=== PATIENT | female | born 1990 | race Caucasian/White ===

== ENCOUNTER 2017-02-07 13:04 | Outpatient (RCR) | payer OTHER ==
[~2017-02-07 13:04] MED LIST: LEVOXYL0.1 MG PO; PERCOCET 325 MG1 TA2 PO; ZOFRAN 4MG T4 MG/TAB PO
== END 2017-03-31 14:24 | disposition still patient (30) ==
LOC: WSOH 13:04
DX: M79.661 Pain in right lower leg (principal)

== ENCOUNTER 2018-04-13 16:22 | Inpatient (IN) | payer OTHER ==
[~2018-04-13] VITALS: Ht 157.5 cm; Wt 96.8 kg
[2018-04-18] VITALS (48 sets, daily range): BP systolic 91–131; BP diastolic 41–87; PULSE 75–118; TEMP 97.4–98.1
[2018-04-18] MEDS ORDERED: ZANTAC 150MG T150 MG PO (12:15)
[2018-04-18] MEDS ORDERED: PRENATAL MVI (12:15)
[2018-04-18 12:49] LABS: BASO % 0.3 % (0.0-2.0); EOS # 0.1 (0.0-0.7); EOS % 0.8 % (0-4.0); GRAN # 5.7 (1.4-6.5); GRAN % 72.4 % (42.2-75.2); HEMATOCRIT 40.7 % (37.0-47.0); HEMOGLOBIN 13.8 g/dl (12.5-16.0); LYMPH # 1.3 (1.2-3.4); MEAN CELL VOLUME 92 fl (80.0-100.0); MEAN CORPUSCULAR HEMOGLOBIN 31 pg (27.0-31.0); MEAN CORPUSCULAR HGB CONC 34 g/dl (33.0-37.0); MEAN PLATELET VOLUME 10.3 fl (7.4-10.4); MONO # 0.7 (0.1-0.6); PLATELET COUNT 219 K/mm3 (130-400); RED BLOOD COUNT 4.43 M/mm3 (4.10-5.30); REDCELL DISTRIBUTION WIDTH-CV 14.1 % (11.5-14.5)
[2018-04-19] VITALS (14 sets, daily range): BP systolic 99–130; BP diastolic 55–99; PULSE 91–127; TEMP 97.8–98.8
[2018-04-19] MEDS ORDERED: IBU600 MG PO (08:59)
[2018-04-20 08:00] VITALS: BP 117/78; PULSE 83; TEMP 98.5
== END 2018-04-20 14:10 | disposition home or self-care (01) | DRG 807 ==
LOC: LDR 04-18 11:49 → OB 04-18 11:49 → LDR 04-18 14:08 → OB 04-19 01:00
PROVIDERS: Obstetrics & Gynecology
PROC: 3E033VJ Introduction of Other Hormone into Peripheral Vein, Percutaneous Approach (ICD-10-PCS; 2018-04-18)
PROC: 10907ZC Drainage of Amniotic Fluid, Therapeutic from Products of Conception, Via Natural or Artificial Opening (ICD-10-PCS; 2018-04-18)
PROC: 0UQMXZZ Repair Vulva, External Approach (ICD-10-PCS; 2018-04-18)
PROC: 10E0XZZ Delivery of Products of Conception, External Approach (ICD-10-PCS; principal; 2018-04-19)
PROC: 0KQM0ZZ Repair Perineum Muscle, Open Approach (ICD-10-PCS; 2018-04-19)
DX: O48.0 Post-term pregnancy (principal); Z37.0 Single live birth; Z3A.40 40 weeks gestation of pregnancy; O77.0 Labor and delivery complicated by meconium in amniotic fluid; O99.284 Endocrine, nutritional and metabolic diseases complicating childbirth; E03.9 Hypothyroidism, unspecified; O70.1 Second degree perineal laceration during delivery
CPT/HCPCS: J1200; J2590; J7120

== ENCOUNTER 2021-08-17 19:01 | Outpatient (CLI) | payer OTHER ==
[~2021-08-17] VITALS: Ht 160 cm; Wt 93.6 kg
[~2021-08-17 19:01] MED LIST changes: +IBU600 MG PO; +PRENATAL MVI; +ZANTAC 150MG T150 MG PO
--- NOTE | 2021-08-17 19:20 | NUR ---
G2L1. 29-0. Pt to LDR 5 with spouse. Pt states she lost her peripheral vision for 30 mins but states it is back at this time. Pt also reports headache to her right side of head, has not taken medication for this yet. Pt reports having lor hdz for the last couple weeks irregular. Pt also reports numbness to her left hand when she got to the ER. Pt denies drinking enough fluids today and reports being on her feet majority of the day. Plan of care explained. at nurses station prior to pt on floor and orders received. 2000: called and updated on pt. Orders for tylenol received. 2009: 1 GM tylenol given at this time. Lights off and pt instructed to attempt to rest. Ice water given to pt.
[2021-08-17] MEDS ORDERED: SYNTHROID0.112 MG/T PO (19:53)
[2021-08-17] MEDS ORDERED: PROZAC40 MG PO (19:54)
[2021-08-17 20:00] VITALS: BP 119/80; PULSE 109; TEMP 98.2
[2021-08-17 20:13] LABS: COLLECTION METHOD CLEAN CATCH
[2021-08-17 20:17] LABS: BASO % 0.4 % (0.0-2.0); EOS # 0.1 K/mm3 (0.0-0.7); EOS % 1.3 % (0.0-4.0); GRAN # 6.8 K/mm3 (1.4-6.5); GRAN % 69.9 % (42.2-75.2); HEMATOCRIT 37.1 % (37.0-47.0); HEMOGLOBIN 12.6 g/dl (12.5-16.0); MEAN CELL VOLUME 94 fl (80.0-100.0); MEAN CORPUSCULAR HEMOGLOBIN 32 pg (27-31); MEAN CORPUSCULAR HGB CONC 34 g/dl (33.0-37.0); MEAN PLATELET VOLUME 9.9 fl (7.4-10.4); MONO # 0.8 K/mm3 (0.1-0.6); MONO % 7.7 % (1.7-9.3); PLATELET COUNT 232 K/mm3 (130-400); RED BLOOD COUNT 3.96 M/mm3 (4.10-5.30); REDCELL DISTRIBUTION WIDTH-CV 13.5 % (11.5-14.5)
[2021-08-17 20:27] LABS: MUCOUS Present (NOT PRESENT); SQUAMOUS EPITHELIAL 0-2 /hpf (0-10); URINE BACTERIA None Seen /hpf (NONE SEEN)
[2021-08-17 20:30] VITALS: BP 121/77; PULSE 88
[2021-08-17 20:34] LABS: PH 5 (5-8); URINE APPEARANCE Clear (CLEAR/HAZY); URINE BILIRUBIN Negative (NEGATIVE); URINE BLOOD Negative (NEGATIVE); URINE COLOR Yellow (YELLOW); URINE GLUCOSE Negative (NEGATIVE); URINE KETONE Negative (NEGATIVE); URINE LEUKOCYTE ESTERASE Negative (NEGATIVE); URINE NITRATE Negative (NEGATIVE); URINE PROTEIN(semi-quant) 1+ (NEGATIVE); URINE UROBILINOGEN Negative (NEGATIVE)
[2021-08-17 20:37] LABS: BILIRUBIN,TOTAL 0.4 mg/dL (0.2-1.2); CREATININE, serum 0.64 mg/dL (0.57-1.11); TOTAL PROTEIN 6.4 gm/dL (6.2-8.1)
[2021-08-17 21:00] VITALS: BP 120/78; PULSE 86
--- NOTE | 2021-08-17 21:10 | NUR ---
Pt eating dinner. Pt and spouse updated on lab work and new orders from . Pt wanting to finish eating prior to cervical check. 2125: SVE closed/thick/high. 2139: Discharge instructions given to pt. Instructed pt to rest until followup apt tomorrow. Instructed to pt call office if she has not heard from them in the morning for apt. Pt and spouse verablized their understanding and questions answered. Pt off unit and home with spouse.
[2021-08-17 21:28] VITALS: BP 120/81; PULSE 96
== END 2021-08-17 21:40 | disposition home or self-care (01) ==
LOC: LDRO 19:01
PROVIDERS: Student in an Organized Health Care Education/Training Program
DX: Z34.90 Encounter for supervision of normal pregnancy, unspecified, unspecified trimester (principal); Z3A.00 Weeks of gestation of pregnancy not specified

== ENCOUNTER 2021-10-08 00:41 | Outpatient (CLI) | payer OTHER ==
[~2021-10-08] VITALS: Ht 160 cm; Wt 100.0 kg
[~2021-10-08 00:41] MED LIST changes: +PROZAC40 MG PO; +SYNTHROID0.112 MG/T PO
--- NOTE | 2021-10-08 00:45 | NUR ---
0045- PATIENT AND FAMILY MEMBER AMBULATORY TO THE UNIT. ORIENTATED TO ROOM AND CHANGED INTO CLEAN GOWN. PATIENT IS A AT [address] PEÑALOZA WHO IS HERE WITH DECREASED MOVEMENT. PATIENT REPORTS AFTER DINNER FEELING VERY HOT AND FLUSHED, SWEATING AND THEN FEELING COLD AND SHORTLY AFTER THAT NOTICED THE BABY WAS NOT MOVING. PATIENT DID KICK COUNTS AT HOME, ATE SOME CANTELOPE AND DRANK SOME COLD WATER BUT COULD NOT FEEL BABY MOVE. PATIENT DENIES LOF, CONTRACTIONS OR BLEEDING AT THIS TIME. 0046- EFM AND TOCO ON AND TRACING. VITALS TAKEN, ASSESSMENT COMPLETE, PLAN OF CARE DISCUSSED. PATIENT VERBALIZED FEELING THE KICK SHORTLY AFTER THERE WAS AUDIBLE MOVEMENT ON THE EFM. PATIENT GIVEN ICE WATER AND SNACK. DENIES FURHTER NEEDS. CALL LIGHT WITHIN REACH.
[2021-10-08 01:00] VITALS: BP 123/80; PULSE 100; TEMP 97.9
[2021-10-08 01:30] VITALS: BP 118/73; PULSE 88
[2021-10-08 01:55] VITALS: BP 119/81; PULSE 88
== END 2021-10-08 02:10 | disposition home or self-care (01) ==
LOC: LDRO 00:41 → LDR 00:45 → LDRO 02:10
DX: O36.8130 Decreased fetal movements, third trimester, not applicable or unspecified (principal); Z3A.36 36 weeks gestation of pregnancy
CPT/HCPCS: OP

== ENCOUNTER 2021-10-19 03:05 | Outpatient (CLI) | payer OTHER ==
[~2021-10-19] VITALS: Ht 162.6 cm; Wt 101.4 kg
--- NOTE | 2021-10-19 03:15 | NUR ---
0315- PT PRESENTS TO LDR COMPLAINING OF CONTRACTIONS, AMBULATORY TO ROOM LR4, CHANGED INTO GOWN. 0318- EFM X2 APPLIED. PT DENIES LEAKING FLUID OR VAGINAL BLEEDING. STATES SHE HAS BEEN NAZANIN SINCE 1, BUT THEY HAVE BECOME MORE INTENSE AND SHE CANNOT SLEEP. PT ALSO REPORTS MOVEMENT. PLAN OF CARE FOR LABOR CHECK DISCUSSED AND QUESTIONS ANSWERED. 0325- SVE BY THIS NURSE 1-. QUESTIONS ANSWERED. 0330- NURSING ADMISSION HISTORY AND ASSESSMENT COMPLETE. ORAL HYDRATION PROVIDED. 0430- SVE BY THIS NURSE IS UNCHANGED. PT REPORTS THAT SHE FEELS THEM MORE INTENSELY, BUT SHE APPEARS TO NOT HAVE TO BREATHE THROUGH THEM AT THIS TIME. PLAN FOR DISMISSAL TO HOME DISCUSSED WITH PT AND QUESTIONS ANSWERED. 0433- PT UP TO BATHROOM. 0439- DR ROLES CALLED CHARTED, ORDERS RECEIVED. 0445- PT OFF MONITORS FOR DISMISSAL. 0500- DISMISSAL INSTRUCTIONS GIVEN INCLUDING EARLY LABOR PRECAUTIONS AND WHEN TO RETURN TO LDR. PT VERBALIZES UNDERSTANDING AND SIGNS PAPERS. PT DISMISSED TO HOME ACCOMPANIED BY HER FATHER.
[2021-10-19 03:30] VITALS: BP 131/87; PULSE 83; TEMP 98.5
[2021-10-19] MEDS ORDERED: SYNTHROID0.137 MG RC (03:39)
== END 2021-10-19 05:00 | disposition home or self-care (01) ==
LOC: LDRO 03:05
DX: O62.9 Abnormality of forces of labor, unspecified (principal); Z3A.38 38 weeks gestation of pregnancy

== ENCOUNTER 2021-11-03 06:15 | Inpatient (IN) | payer OTHER ==
[~2021-11-03] VITALS: Ht 157.5 cm; Wt 103.2 kg
[2021-11-03] VITALS (30 sets, daily range): BP systolic 113–142; BP diastolic 56–100; PULSE 75–107; TEMP 97.3–98.3
[~2021-11-03 06:15] MED LIST changes: +SYNTHROID0.137 MG RC
--- NOTE | 2021-11-03 06:20 | NUR ---
0620 Pt ambulatory onto unit with spouse. FHR monitor/TOCO applied. Vital signs WNL. Pt denies any vaginal bleeding, leaking of fluid, decreased movement, or regular contractions. Assessments and medication reconcilation done. Consents signed. Iv started in left hand. No redness/drainage/edema noted. Pt oriented to room. Call light within reach. Plan of care discused. Pt verbalizes understanding.
[2021-11-03] MEDS ORDERED: PEPCID 20MG TAB20 MG PO (06:36)
[2021-11-03 07:30] LABS: BASO % 0.3 % (0.0-2.0); EOS # 0.1 K/mm3 (0.0-0.7); EOS % 1.1 % (0.0-4.0); GRAN # 4.5 K/mm3 (1.4-6.5); GRAN % 63.5 % (42.2-75.2); HEMOGLOBIN 12.1 g/dl (12.5-16.0); LYMPH # 1.7 K/mm3 (1.2-3.4); LYMPH % 23.7 % (20.0-51.0); MEAN CELL VOLUME 93 fl (80.0-100.0); MEAN CORPUSCULAR HEMOGLOBIN 31 pg (27-31); MEAN CORPUSCULAR HGB CONC 33 g/dl (33.0-37.0); MONO # 0.8 K/mm3 (0.1-0.6); PLATELET COUNT 216 K/mm3 (130-400); RED BLOOD COUNT 3.89 M/mm3 (4.10-5.30); REDCELL DISTRIBUTION WIDTH-CV 13.3 % (11.5-14.5)
[2021-11-03 07:32] LABS: HEMATOCRIT 36.3 % (37.0-47.0)
--- NOTE | 2021-11-03 13:15 | NUR ---
1240 SVE by this RN /+1. 1243 Dr. Saavedra called for delivery. 1250 Nursery called for delivery. Scar Gr and this RN in room coaching patient through pushing with contractions. 1300 Dr. Saavedra here for delivery. 1311 Spontaneous vaginal delivery of viable male infant. Nuchal cord x1 and true knot noted. Infant bulb suctioned and stimulated. Cord clamped and cut by Dr. Saavedra. to mother's abdomen. Scar Gr takes over care of infant. 1315 spontaneous delivery of placenta. pitocin bolus started per protocol. fundal massage done. firm/midline. small amt of bleeding noted. love care done. clean pad placed. safety precautions discussed. call light within reach. plan of care discussed. pt verbalizes understanding.
[2021-11-04 05:30] VITALS: BP 125/84; PULSE 91; TEMP 98.1
--- NOTE | 2021-11-04 10:01 | NUR ---
Initial visit; Parents thanked for offering God's blessings for the of their son. Gate Technician thanked family for choosing our hospital.
[2021-11-04 10:30] VITALS: BP 108/72; PULSE 116; TEMP 98.2
[2021-11-04 17:00] VITALS: BP 121/75; PULSE 99; TEMP 98.4
== END 2021-11-04 19:21 | disposition home or self-care (01) | DRG 807 ==
LOC: OB 06:15 → LDR 06:15 → OB 15:45 → LDR 22:44 → OB 11-04 19:21
PROVIDERS: ADMIT Obstetrics & Gynecology
PROC: 10E0XZZ Delivery of Products of Conception, External Approach (ICD-10-PCS; principal; 2021-11-03)
PROC: 0KQM0ZZ Repair Perineum Muscle, Open Approach (ICD-10-PCS; 2021-11-03)
PROC: 10907ZC Drainage of Amniotic Fluid, Therapeutic from Products of Conception, Via Natural or Artificial Opening (ICD-10-PCS; 2021-11-03)
DX: O69.9XX0 Labor and delivery complicated by cord complication, unspecified, not applicable or unspecified (principal); Z37.0 Single live birth; O36.63X0 Maternal care for excessive fetal growth, third trimester, not applicable or unspecified; O99.284 Endocrine, nutritional and metabolic diseases complicating childbirth; E03.9 Hypothyroidism, unspecified; O99.344 Other mental disorders complicating childbirth; F41.9 Anxiety disorder, unspecified; O70.1 Second degree perineal laceration during delivery; O69.81X0 Labor and delivery complicated by cord around neck, without compression, not applicable or unspecified; Z3A.40 40 weeks gestation of pregnancy
CPT/HCPCS: J2590; J2795; J7120